=== PATIENT | male | born 1980 | race Caucasian/White ===

== ENCOUNTER 2017-08-27 14:40 | Emergency (ER) | payer OTHER, SELFPAY ==
[2017-08-27 14:46] VITALS: BP 120/74; PULSE 80; RESP 16; TEMP 36.7; O2SAT 98; BMI 32.1
[2017-08-27 14:48] VITALS: BP 120/74; PULSE 80; RESP 16; TEMP 36.7; O2SAT 98; BMI 32.1
--- NOTE | 2017-08-27 14:57 | HMH.EDUTC ---
[facility] [place] Disposition Clinical Impression: Contact dermatitis due to poison vine Disposition: Home, Self-Care Condition on Discharge: Good Instructions: DI for Poison Bhumi Allergy, Triamcinolone Additional Instructions: * Poison Bhumi: Discussed how poison vine spreads. Pt seemed aware. Be sure to wash everything you think you might have been wearing when you were exposed. * Kenalog Injection: you received an injection of kenalog today. This is a long acting steroid as we discussed. This should cover the life span of this exposure to poison bhumi but be sure to follow up for new or worsening symptoms. If you have surgery any time in the next 30 days, try to remember to tell them you received an injection of kenalog 40mg today, 08/27/17. Remember as we discussed, steroids can cause you to feel flushed, jittery, difficult to sleep, energetic, higher blood pressure. Steroids should not effect your ability to drive so if you feel that is impaired, do NOT drive and follow up immediately. * staying cool, cool showers and/or compresses calms the itching. Oatmeal baths may help as well. * If you need additional medication to help with the itching, zyrtec in the morning and if necessary, benadryl at bedtime. Just remember benadryl causes drowsiness and you would NOT want to take this if you are going to be out driving. * topical cream is ok to continue to use but avoid use around eye or genitals. Follow up: We have provided you with a list of providers accepting patients. I would encourage you find a new primary care provider and make an appt NEETA as it can take weeks to get a new patient appointment. In the meantime, follow up in the clinic or ER for new, worsening or persistent symptoms. Time of Disposition: 15:11 (RN aware, must wait shot time to ensure to reaction) Medical Decision Making - Kevin Inquiry Pt receiving controlled substance: No Vital Signs: 08/27/17 14:46 08/27/17 14:48 Temperature 98.1 F 98.1 F Temperature Source Oral Temporal Artery Scan Pulse Rate [Right Radial] 80 80 Respiratory Rate 16 16 Blood Pressure [Right Arm] 120/74 120/74 Blood Pressure Mean [Right Arm] 89 89 Blood Pressure Source [Right Arm] Automatic Cuff Automatic Cuff Blood Pressure Position [Right Arm] Sitting Sitting 02 Sat by Pulse Oximetry 98 98 Oxygen Delivery Method Room Air Room Air Orders (Tests/Meds): ED MEDICATIONS Discontinued Medications Generic Name Dose Route Start Last Admin Trade Name Gagan PRN Reason Stop Dose Admin Triamcinolone Acetonide 40 mg 08/27/17 15:07 08/27/17 15:11 Kenalog 40mg/Ml Vial IM 08/27/17 15:08 40 mg ONCE ONE Administration [facility] [place] HPI - General Stated complaint: rash around eyes Time Seen by Provider: 08/27/17 14:57 Mode of Arrival: Family Vehicle Source of Information: Patient Limitations: No Limitations Description of Symptoms (Recalled from Triage Doc. by RN): C/O RASH AROUND EYES HEENT Symptoms (Recalled from RN notes): No Resp Symptoms (Recalled from RN notes): No Skin Symptoms (Recalled from RN notes): Yes MS Symptoms (Recalled from RN notes): No Functional Status (Recalled from RN notes): N/A - History of Present Illness Provider Complaint: Here w/ primarily due to itchy red rash around both eyes but reports it is also on Kristofer FAs and penis. Hx of significant reactions to poison bhumi in the past. Was trimming and pulling pushes/weeds over this most recent weekend, 2-3 days ago, and feels confident that is what this is. No other new contacts, foods, medications. Woke up this morning with eyes swollen. Otc antiitch helps on arms but afraid to put it elsewhere. made him an essential oils antitich cream but that hasn't helped. More red and itchy when hot today. Reports a little swelling around rash on penis but denies any difficulty or pain with urination. No testicular pain. No other contacts w/ rash. I just walk by poison bhumi though and I get it somehow
--- NOTE | 2017-08-27 15:07 | ED_ITS ---
[facility] Disposition Clinical Impression: Contact dermatitis due to poison vine Disposition: Home, Self-Care Condition on Discharge: Good Instructions: DI for Poison Bhumi Allergy, Triamcinolone Additional Instructions: * Poison Bhumi: Discussed how poison vine spreads. Pt seemed aware. Be sure to wash everything you think you might have been wearing when you were exposed. * Kenalog Injection: you received an injection of kenalog today. This is a long acting steroid as we discussed. This should cover the life span of this exposure to poison bhumi but be sure to follow up for new or worsening symptoms. If you have surgery any time in the next 30 days, try to remember to tell them you received an injection of kenalog 40mg today, 08/27/17. Remember as we discussed, steroids can cause you to feel flushed, jittery, difficult to sleep, energetic, higher blood pressure. Steroids should not effect your ability to drive so if you feel that is impaired, do NOT drive and follow up immediately. * staying cool, cool showers and/or compresses calms the itching. Oatmeal baths may help as well. * If you need additional medication to help with the itching, zyrtec in the morning and if necessary, benadryl at bedtime. Just remember benadryl causes drowsiness and you would NOT want to take this if you are going to be out driving. * topical cream is ok to continue to use but avoid use around eye or genitals. Follow up: We have provided you with a list of providers accepting patients. I would encourage you find a new primary care provider and make an appt NEETA as it can take weeks to get a new patient appointment. In the meantime, follow up in the clinic or ER for new, worsening or persistent symptoms. Time of Disposition: 15:11 (RN aware, must wait shot time to ensure to reaction) Medical Decision Making - Kevin Inquiry Pt receiving controlled substance: No Vital Signs: 08/27/17 14:46 08/27/17 14:48 Temperature 98.1 F 98.1 F Temperature Source Oral Temporal Artery Scan Pulse Rate [Right Radial] 80 80 Respiratory Rate 16 16 Blood Pressure [Right Arm] 120/74 120/74 Blood Pressure Mean [Right Arm] 89 89 Blood Pressure Source [Right Arm] Automatic Cuff Automatic Cuff Blood Pressure Position [Right Arm] Sitting Sitting 02 Sat by Pulse Oximetry 98 98 Oxygen Delivery Method Room Air Room Air Orders (Tests/Meds): ED MEDICATIONS Discontinued Medications Generic Name Dose Route Start Last Admin Trade Name Gagan PRN Reason Stop Dose Admin Triamcinolone Acetonide 40 mg 08/27/17 15:07 08/27/17 15:11 Kenalog 40mg/Ml Vial IM 08/27/17 15:08 40 mg ONCE ONE Administration [facility] HPI - General Stated complaint: rash around eyes Time Seen by Provider: 08/27/17 14:57 Mode of Arrival: Family Vehicle Source of Information: Patient Limitations: No Limitations Description of Symptoms (Recalled from Triage Doc. by RN): C/O RASH AROUND EYES HEENT Symptoms (Recalled from RN notes): No Resp Symptoms (Recalled from RN notes): No Skin Symptoms (Recalled from RN notes): Yes MS Symptoms (Recalled from RN notes): No Functional Status (Recalled from RN notes): N/A - History of Present Illness Provider Complaint: Here w/ primarily due to itchy red rash around both eyes but reports it is also on Kristofer FAs and penis. Hx of significant reactions to poison bhumi in the past. Was trimming and pulling pushes/weeds o
[2017-08-27 15:21] VITALS: BP 120/74; PULSE 80; RESP 16; TEMP 36.7; O2SAT 98
== END 2017-08-27 15:33 | disposition home or self-care (01) ==
LOC: UTC 15:31
PROVIDERS: Emergency Provider Nurse Practitioner Family
DX: L25.5 Unspecified contact dermatitis due to plants, except food (principal); Z88.0 Allergy status to penicillin
CPT/HCPCS: 96372; 99201

== ENCOUNTER → 2019-10-20 09:40 | Outpatient (CLI) | payer OTHER, SELFPAY ==
--- NOTE | 2019-10-20 | CT_ITS ---
PROCEDURE: CT ABDOMEN PELVIS WO CON CLINICAL INDICATION: ABDOMINAL PAIN, suspected umbilical hernia and possible left inguinal hernia COMPARISON: No exams were available for comparison TECHNIQUE: IV Contrast: None given Oral Contrast 20ml Gastroview Axial images obtained with sagittal and coronal reformats. All CT scans at the facility use one or more dose reduction, viz: automated exposure control, ma/kV adjustment per patient size (including targeted exams where dose is matched to indication, i.e. head), or iterative reconstruction technique. FINDINGS: Lower thorax: The lower lung kim are clear and there is no pleural fluid. Cardiac size is normal. ABDOMEN: Liver: No masses or biliary dilatation. Gallbladder: Nondistended. No radio opaque stones. Pancreas: No masses or peripancreatic fluid collections. Spleen: unremarkable Adrenals: unremarkable Kidneys/ureters: The kidneys are normal size and there are no calculi and there is no obstructive uropathy. ABDOMEN & PELVIS: Stomach bowel: The stomach and duodenal sweep are normal. Oral contrast opacifies the proximal and mid small bowel which appears normal. The distal small bowel is normal as well. There is a moderately large amount stool in the cecum ascending and transverse colon. There are mild pre diverticular changes of the sigmoid colon with accentuation of the haustra folds. There are few diverticula at the descending colon sigmoid colon junction but there is no diverticulitis. Peritoneum: There is a small umbilical hernia containing fat only measuring 1 point 9 cm at the mouth. There is a left-sided inguinal hernia measuring 2.8 x 2.8 cm on the axial image by 7.0 cm superior inferior dimension on the coronal sequence. Lymph nodes: No enlarged lymph nodes apparent. Vasculature: No evidence of abdominal aortic aneurysm. No retroperitoneal hemorrhage evident. Bones: There is focal degenerate changes mid lower thoracic spine. PELVIS: Reproductive: unremarkable Bladder: Nondistended. No obvious stones or masses. The prostate is normal in size. Appendix: Not definitely identified but there are no findings to suggest appendicitis. IMPRESSION: Small umbilical hernia and small a moderate size left inguinal hernia, minimal diverticulosis descending sigmoid colon junction without diverticulitis Dictated by: Dr. Shane Stewart MD 10/20/2019 11:00 Dr. Shane Stewart MD in [place] 10/20/2019 11:00
== END ==
PROVIDERS: PCP Family Medicine; Visit Provider Physician Assistant
DX: R10.32 Left lower quadrant pain (principal)
CPT/HCPCS: 74176

== ENCOUNTER → 2019-11-19 09:58 | Outpatient (CLI) | payer OTHER, SELFPAY ==
[2019-11-19 10:04] LABS: Microscopic, Urine URINE MICROSCOPIC (MICROSCOPIC)
[2019-11-19 10:29] LABS: Appearance,Urine CLEAR (Clear); Bilirubin,Urine Negative (Negative); Blood, Urine Negative (Negative); Color,Urine YELLOW (Yellow); Glucose,Urine (UA) Negative (Negative); Ketones,Urine Negative (Negative); Leukocyte Esterase,Urine Negative (Negative); Nitrate,Urine Negative (Negative); PH,Urine 5.5 (5.0-8.5); Protein,Urine Negative (Negative); Specific Gravity, Urine >= 1.030 (1.005-1.030); Urobilinogen,Urine 0.2 EU/dl (0.2)
[2019-11-19 10:42] LABS: Squamous Epithelial Cell,Urine Occasional #/hpf (0-5); WBC,Urine Occasional #/hpf (0-3)
[2019-11-19 10:43] LABS: Basophils # 0.1 K/mm3 (0-0.2); Basophils % 0.6 % (0.1-2.0); Eosinophils # 0.3 K/mm3 (0.0-0.4); Eosinophils % 4.5 % (0.1-12.0); Hemoglobin 16.4 g/dL (14.1-18.0); Lymphocytes # 2.2 K/mm3 (0.7-4.5); Lymphocytes % 29.2 % (10-50); Mean Corpuscular HGB Conc 34.8 g/dL (31.8-35.4); Mean Corpuscular Hemoglobin 30.9 pg (27.0-31.2); Mean Corpuscular Volume 88.9 fl (80-94); Mean Platelet Volume 7.6 fl (7.4-10.4); Monocytes # 0.4 K/mm3 (0.1-1.0); Monocytes % 5.8 % (1.7-9.3); Neutrophils # 4.5 K/mm3 (1.8-7.8); Neutrophils % 59.9 % (37.0-80.0); Platelet Count 334 K/mm3 (142-424); Red Blood Count 5.29 M/mm3 (4.60-6.20); Red Cell Distribution Width 13.3 % (11.5-17.5); White Blood Count 7.5 K/mm3 (4.8-10.8)
[2019-11-19 11:27] LABS: Anion Gap 17.5 mEq/L (5-15); Blood Urea Nitrogen 26 mg/dl (9-20); Calcium 10.1 mg/dl (8.4-10.2); Carbon Dioxide 30 mmol/L (22.0-30.0); Chloride 100 mmol/L (98-107); Estimated Glomerular Filt Rate 74 ml/min (>60); GFR (African American) 90 ML/MIN (>60); Glucose 101 mg/dl (74-100); Potassium 4.5 mmoL/L (3.5-5.1); Sodium 143 mmol/L (136-145)
[2019-11-19 12:56] LABS: Coronavirus 19 IgG Antibody Negative (Negative); Coronavirus 19 IgM Antibody Negative (Negative)
== END ==
PROVIDERS: Visit Provider Surgery
DX: Z01.818 Encounter for other preprocedural examination (principal); K46.9 Unspecified abdominal hernia without obstruction or gangrene
CPT/HCPCS: 36415; 80048; 81001; 85025; 86328

== ENCOUNTER 2019-11-20 06:09 | Day surgery (SDC) | payer OTHER, SELFPAY ==
[2019-11-18 13:40] VITALS: BMI 32.8
[2019-11-20] VITALS (18 sets, daily range): BP systolic 112–144; BP diastolic 43–95; PULSE 72–94; RESP 12–18; TEMP 36.6–43; O2SAT 90–99
--- NOTE | 2019-11-20 07:25 | HMH.ANESCL ---
[facility] Anesthesia Checklist - Patient Identification Patient Identification: Arm Band, Verbal (Name & ) - Structural Data Admitted From: Home Planned Operative Procedure/s: Open umbilical and left inguinal hernia repair Consent for Planned Operative Procedure(s) Verified: Yes Verified Documents: Surgical Consent, History and Physical - NPO Status Verified Time NPO: 21:00 - Chart Verification Results Verified: CBC, BMP, UA - Additional verifications Anesthesia Reactions: No Hx Blood Transfusions: No Blood Transfusion Reaction: No - Airway Assessment C-Spine Mobility Assessed: Yes TMJ Mobility Assessed: Yes Dentition: Good Dentition - Neurological Assessment Level of Consciousness: Awake, Alert, Appropriate, Follows Commands Hx Seizures: No Numbness or tingling in extremities: No - Anesthesia Plan Anesthesia Risk discussed: Yes Anesthesia Plan: Verified ASA Class: II Anesthesia Type: General [facility] History I have reviewed the patient's past medical history: Yes Medical History: Denies:: Cancer, Diabetes Mellitus Type 1, Diabetes Mellitus Type 2, Hypertension, Internal Pacemaker, Lung Disease, MRSA, Seizures *Have you ever received a pneumonia vaccine?: No *Have you received a flu vaccine this season?: No Other Medical History: Denies: Blood Transfusion Reaction Comment:: Obesity Anesthesia experience/problems:: No prior complications Other Surgeries: Yes: Other. No: Pacemaker Amputation: No Fractures: No - *Social History Last grade of school completed: High school graduate Smoking Status: Never smoker Alcohol Intake: never Substance Use Type: denies use *Occupational Status:: employed Housing: house Household Members: spouse, family *Travel in the last 8 weeks: None Family Hx:: No significant family history
[2019-11-20 09:18] LABS: Microscopic,Cath URINE MICROSCOPIC (MICROSCOPIC)
--- NOTE | 2019-11-20 09:50 | HMH.ANESI ---
[facility] Anesthesia Record Part I Intake, IV Amount: 2,000 Estimated blood loss (mL): 10 Urine output (mL): 0 Blood Pressure: 144/95 SaO2: 95 Pulse Rate: 85 Respiratory Rate: 12 Temperature: 98.2 F Patient is:: Awake, Stable Stable to PACU at:: 09:50
--- NOTE | 2019-11-20 09:53 | P.OP_ITS ---
Date of procedure: 11/20/19 Pre-op Diagnosis:: Umbilical hernia Left inguinal hernia Post-op Diagnosis:: Same Procedure performed:: Open repair of umbilical hernia with 6.4 cm VentraLex mesh Open repair of direct left inguinal hernia Surgeon:: Jono Rae MD MEDICAL SERVICE REPRESENTATIVE:: Fili Kumar Anesthesia: GETA Estimated blood loss (mL): 15 Clinical Note:: The risks and benefits of laparoscopic repair and the risks and benefits of open repair were discussed with the patient prior to surgery. The patient requested open approach. Operative findings:: 2.5 cm umbilical defect Complex direct left inguinal hernia with dense inflammatory response Operative note:: After informed consent was obtained the patient was taken to the operating room and placed in the supine position. General anesthesia was induced and his abdomen and groin/scrotum were prepped and draped in a sterile fashion. After infiltration local anesthetic an infraumbilical incision was made. The deep subcutaneous tissue was dissected with a combination of electrocautery, Metzenbaum scissors, and blunt dissection. The umbilical stalk was transected/elevated. A 2.5 cm defect was encountered. Incarcerated preperitoneal fat noted. A 6.4 cm VentraLex mesh was secured in position with interrupted 0 Ethibond. Primary closure overlying the mesh was 0 Ethibond was then completed. The umbilical stalk was reapproximated with non-dyed 2-0 Vicryl. Skin was then closed with interrupted 4-0 Monocryl. Dressings were applied. After infiltration local anesthetic/nerve block and oblique left groin incision was made. The deep subcutaneous tissue was dissected with electrocautery through Nuha's fascia to the level of the external aponeurosis. The external aponeurosis was sharply opened with Metzenbaum scissors to the level of the external ring. The contents of the canal were carefully elevated. Significant degree of chronic scarring was noted. A complex large direct defect was encountered. An extra-large PerFix plug was secured with interrupted Ethibond. The overlay PerFix was then secured to the shelving edge inferiorly and fascial margin superiorly with interrupted 0 Ethibond. The external aponeurosis was reapproximated with interrupted non-dyed 2-0 Vicryl. Nuha's fascia was reapproximated in similar manner. Skin was then closed with running 4-0 Monocryl in a subcuticular fashion. Sterile dressings were applied and patient was transferred to recovery in stable condition after extubation. Condition: stable Disposition: PACU Specimens:: None Complications:: No immediate
[2019-11-20 10:21] LABS: Appearance,Urine/Cath CLEAR (Clear); Bilirubin,Cath Negative (Negative); Blood, Urine/Cath Negative (Negative); Color,Urine/Cath YELLOW (Yellow); Glucose,Urine/Cath (UA) Negative (Negative); Ketones,Urine/Cath Negative (Negative); Leukocyte Esterase,Cath Negative (Negative); Nitrate,Cath Negative (Negative); PH,Urine/Cath 5.5 (5.0-8.5); Protein,Urine/Cath Negative (Negative); Specific Gravity, Urine/Cath >= 1.030 (1.005-1.030); Urobilinogen,Cath 0.2 EU/dl (0.2)
[2019-11-20 10:28] LABS: RBC,Urine/Cath Occasional # /hpf (0-3); Squamous Epithelial Ur./Cath Occasional #/hpf (0-5)
--- NOTE | 2019-11-20 13:59 | PC.NURSE ---
IPC pump applied to bilateral lower legs .Denies leg pain Watching for redness and pain
--- NOTE | 2019-11-21 13:26 | HMH.ANESII ---
[facility] Anesthesia Record Part II Discharge Time: 10:25 Destination: Surgical Day Care (OP Surgery) PACU nurse assessment reviewed?: Yes Patient Condition:: Fair Anesthesia Complications:: None Swallowing reflex intact?: Yes Cyanosis?: No Blood Pressure: 120/73 Pulse Rate: 79 Temperature: 98.2 F Mental Status: Alert & Oriented Pain level:: 9 Nausea and/or vomitting:: None Intake, IV Amount: 0
[2019-11-21 13:29] VITALS: BP 120/73; PULSE 79; TEMP 36.8
== END 2019-11-20 13:05 | disposition home or self-care (01) ==
LOC: OR 06:11
PROVIDERS: PCP Family Medicine; Visit Provider Surgery
PROC: (CPT 49585; principal; 2019-11-20 07:30)
DX: K42.9 Umbilical hernia without obstruction or gangrene (principal); Z88.0 Allergy status to penicillin
CPT/HCPCS: 49585; 81001; 96374; C1781; J2405

== ENCOUNTER 2019-11-23 11:00 | Outpatient (CLI) | payer OTHER, SELFPAY ==
[2019-11-23 11:03] VITALS: BP 142/74; PULSE 81; RESP 18; TEMP 36.9; O2SAT 98
== END 2019-11-23 11:18 | disposition home health service (06) ==
LOC: INF 11:00
PROVIDERS: Visit Provider Surgery
DX: K40.90 Unilateral inguinal hernia, without obstruction or gangrene, not specified as recurrent (principal); K42.9 Umbilical hernia without obstruction or gangrene
CPT/HCPCS: 96372

== ENCOUNTER → 2020-04-27 09:32 | Outpatient (CLI) | payer OTHER, SELFPAY ==
--- NOTE | 2020-04-27 09:32 | CT_ITS ---
PROCEDURE: CT ABDOMEN PELVIS W CON CLINICAL INDICATION: Lower abdominal pain Eval prior hernia surgery Pain in umbilical area and left groin Surgery November 2019 COMPARISON: CT CT ABDOMEN PELVIS WO CON from 10/20/2019 TECHNIQUE: IV Contrast: 75ML Isovue 370 Oral Contrast None Axial images obtained with sagittal and coronal reformats. All CT scans at the facility use one or more dose reduction, viz: automated exposure control, ma/kV adjustment per patient size (including targeted exams where dose is matched to indication, i.e. head), or iterative reconstruction technique. FINDINGS: There are mild atelectatic or fibrotic changes in the lingula and right lung base. The right hemidiaphragm is elevated. The liver, adrenal glands, pancreas, and kidneys show no acute finding. There is mild splenomegaly at 14 cm. No intestinal obstruction or free air. Unremarkable appearing appendix. There is colonic diverticulosis without diverticulitis. There is some increased soft tissue density in the left inguinal region consistent with postsurgical changes from prior hernia repair. A small seroma is also consideration. This area measures approximately 3 by 1.6 cm. No recurrence or residual hernia is evident. Previously noted umbilical hernia is no longer apparent. With postsurgical changes at the umbilical region There is colonic diverticulosis but no evidence of diverticulitis. Metallic density noted in the right testicular region from vasectomy. Mildly prominent seminal vesicle on the right. There is a small right inguinal hernia. No acute bony findings. IMPRESSION: 1. Soft tissue density in the left inguinal region consistent with postsurgical changes versus small seroma. No evidence of recurrence or residual hernia 2. Colonic diverticulosis. No evidence of diverticulitis Dictated by: Vin Bradley MD 04/28/2020 11:01 Vin Bradley MD in [place] 04/28/2020 11:01
== END ==
PROVIDERS: PCP Surgery; Visit Provider Surgery
DX: K46.9 Unspecified abdominal hernia without obstruction or gangrene (principal); R10.30 Lower abdominal pain, unspecified
CPT/HCPCS: 74177; Q9967

== ENCOUNTER 2020-08-29 18:34 | Emergency (ER) | payer BC, SELFPAY ==
[2020-08-29 20:39] VITALS: BP 157/111; PULSE 81; RESP 20; TEMP 37.1; O2SAT 98; BMI 34.2
--- NOTE | 2020-08-29 20:42 | HMH.EDUTC ---
[facility] [place] Clinical Impression: Sinusitis Qualifiers: Sinusitis location: unspecified location Chronicity: acute Recurrence: non-recurrent Qualified Code(s): J01.90 - Acute sinusitis, unspecified Otitis media Qualifiers: Otitis media type: suppurative Chronicity: acute Laterality: right Recurrence: non-recurrent Spontaneous tympanic membrane rupture: without spontaneous rupture Qualified Code(s): H66.001 - Acute suppurative otitis media without spontaneous rupture of ear drum, right ear Disposition: Home, Self-Care Condition on Discharge: Good Instructions: Middle Ear Infection, DI for Sinusitis Additional Instructions: Drink plenty of fluids. Take tylenol or ibuprofen for pain or fever. Take the medications as directed. Follow up with your regular doctor. GO TO THE ER FOR ANY WORSENING SYMPTOMS Prescriptions: Benzonatate [Tessalon Perle 100mg Cap] 100 mg PO TIDP PRN #30 cap PRN Reason: Cough Transmission Status: Received by [id number] Azithromycin [Z-Avi 250mg Tab*] 250 mg PO UD DOSE PK #6 tab Transmission Status: Received by [facility] Referrals: Otto Robles MD [Primary Care Provider] - Forms: Work/School Release Time of Disposition: 20:49 Medical Decision Making - Medical Records Medical records reviewed: No: I reviewed the patient's medical records. - Kevin Inquiry Pt receiving controlled substance: No Vital Signs: 08/29/20 20:39 08/29/20 20:56 Temperature 98.7 F 98.6 F Temperature Source Oral Pulse Rate 81 Pulse Rate [Right] 81 Respiratory Rate 20 18 Blood Pressure 157/111 H Blood Pressure [Right Arm] 157/111 H Blood Pressure Mean [Right Arm] 126 Blood Pressure Source [Right Arm] Automatic Cuff Blood Pressure Position [Right Arm] Sitting 02 Sat by Pulse Oximetry 98 [facility] [place] HPI - General Stated complaint: congestion headache Time Seen by Provider: 08/29/20 20:42 - History of Present Illness Provider Complaint: He c/o sinus congestion and bilateral ear pain for the past 2 days. - Related Data Previous Rx's Medication Instructions Recorded Azithromycin [Z-Avi 250mg Tab*] 250 mg PO UD DOSE PK #6 tab 08/29/20 Benzonatate [Tessalon Perle 100mg 100 mg PO TIDP PRN #30 cap 08/29/20 Cap] Allergies Allergy/AdvReac Type Severity Reaction Status Date / Time Penicillins [PENICILLINS] Allergy Unknown Verified 05/04/20 12:58 [facility] History - Hepatitis A Screen Attestation statement:: This patient has been screened for Hepatitis A risk factors. I have reviewed the patient's past medical history: Yes Medical History: Denies:: Cancer, Diabetes Mellitus Type 1, Diabetes Mellitus Type 2, Hypertension, Internal Pacemaker, Lung Disease, MRSA, Seizures Other Medical History: Denies: Blood Transfusion Reaction Comment: Obesity Other Surgeries: Yes: Hernia Repair, Other. No: Pacemaker Amputation: No Fractures: No - Social History Smoking Status: Never smoker Alcohol Intake: never Substance Use Type: denies use Occupational Status: employed Housing: house Household Members: spouse, family Family Hx:: No significant family history ROS Obtained: Yes All systems reviewed & no additional complaints - Constitutional Constitutional: Reports chills, Reports fever(s), Reports poor appetite, Reports malaise - Eyes Eyes: Denies eye discharge - ENT Ears, Nose, Mouth, and Throat: Reports as per HPI - Cardiovascular Cardiovascular: Denies chest pain - Respiratory Respiratory: Reports chest congestion, Reports cough, Denies dyspnea, Denies stridor, Denies wheezing Physical Exam - General General appearance: alert, in no apparent distress - Head Head exam: atraumatic, normocephalic, normal inspection - Eye Eye exam: Present: normal appearance, PERRL, EOMI - ENT ENT exam: Present: mucous membranes moist, normal external ear exam - Expanded ENT Exam TM/Canal exam: Bilateral TM: erythema, bulging, effusion Nose
[2020-08-29 20:56] VITALS: BP 157/111; PULSE 81; RESP 18; TEMP 37
== END 2020-08-29 20:58 | disposition home or self-care (01) ==
PROVIDERS: Emergency Provider Nurse Practitioner Family; PCP Family Medicine
DX: J01.90 Acute sinusitis, unspecified (principal); H66.001 Acute suppurative otitis media without spontaneous rupture of ear drum, right ear
CPT/HCPCS: 99202; G0463; U0003

== ENCOUNTER → 2021-03-24 12:58 | Outpatient (CLI) | payer OTHER, SELFPAY | PROVIDERS: Visit Provider Nurse Practitioner | DX: Z20.822 Contact with and (suspected) exposure to COVID-19 (principal) | CPT/HCPCS: C9803; U0003; U0005 ==

== ENCOUNTER 2021-06-02 15:46 | Emergency (ER) | payer OTHER, SELFPAY ==
[2021-06-02 16:05] VITALS: BP 133/87; PULSE 81; RESP 19; TEMP 36.8; O2SAT 97; BMI 36.2
--- NOTE | 2021-06-02 16:29 | HMH.EDUTC ---
[facility] [place] Clinical Impression: Cough Disposition: Home, Self-Care Condition on Discharge: Good Instructions: Cough, Benzonatate, Fluticasone Nasal Doyle Additional Instructions: *Monitor Temp, Over the counter Motrin or Tylenol as directed/as needed Tylenol every 4 hours and Motrin every 6 hours (as long as your family doctor has told you that you can take it) for fever or pain. and straight to ER if unable to lower temp less than 101.0 after medication given *Warm salt water gargles may help to soothe the throat *Throat Lozenges *Sleep elevated *Humidifier/Vaporizer *Flonase 2 sprays in each nostril daily but be aware that it may take 2-3 days before you notice improvement Follow up with your Family Doctor for further testing and evaluation Follow up IMMEDIATELY for new or worsening symptoms or no Noticeable improvement over the next 48-72 hours. 911 for difficulty breathing or swallowing Prescriptions: Benzonatate [Benzonatate 100mg cap] 100 mg PO Q8HP PRN #15 cap PRN Reason: Cough Transmission Status: Received by [id number] Fluticasone Propionate [Flonase 50mcg nasal spray 16gm] 1 spr NS DAILY #1 each Transmission Status: Received by [id number] Referrals: Otto Robles MD [Primary Care Provider] - As needed Time of Disposition: 16:39 Medical Decision Making - Kevin Inquiry Pt receiving controlled substance: No Kevin was queried for this patient: No Vital Signs: 06/02/21 16:05 06/02/21 16:44 Temperature 98.3 F 98.3 F Temperature Source Oral Pulse Rate 81 Pulse Rate [Right Brachial] 81 Respiratory Rate 19 19 Blood Pressure 133/87 Blood Pressure [Right Arm] 133/87 Blood Pressure Mean [Right Arm] 102 Blood Pressure Source [Right Arm] Automatic Cuff Blood Pressure Position [Right Arm] Sitting 02 Sat by Pulse Oximetry 97 Oxygen Delivery Method Room Air [facility] [place] HPI - General Stated complaint: cough, Time Seen by Provider: 06/02/21 16:29 Mode of Arrival: Ambulatory Source of Information: Patient Limitations: No Limitations Description of Symptoms (Recalled from Triage Doc. by RN): PATIENT C/O COUGH X 2 WEEKS HEENT Symptoms (Recalled from RN notes): No Resp Symptoms (Recalled from RN notes): Yes Skin Symptoms (Recalled from RN notes): No MS Symptoms (Recalled from RN notes): No Functional Status (Recalled from RN notes): WNL - History of Present Illness Provider Complaint: Patient states that he has had a naggy cough for about 2 weeks States that he feels like there is a tickle in his throat then he starts coughing Denies sinus congestion and denies feeling ill - Related Data Previous Rx's Medication Instructions Recorded Azithromycin [Z-Avi 250mg Tab*] 250 mg PO UD DOSE PK #6 tab 08/29/20 Benzonatate [Tessalon Perle 100mg 100 mg PO TIDP PRN #30 cap 08/29/20 Cap] Benzonatate [Benzonatate 100mg 100 mg PO Q8HP PRN #15 cap 06/02/21 cap] Fluticasone Propionate [Flonase 1 spr NS DAILY #1 each 06/02/21 50mcg nasal spray 16gm] Allergies Allergy/AdvReac Type Severity Reaction Status Date / Time Penicillins [PENICILLINS] Allergy Unknown Verified 05/04/20 12:58 - Worker's Comp Is this a Worker's Comp case?: No [facility] History - Hepatitis A Screen Drug use history?: No High risk sexual behaviors?: No History of sexually transmitted infection?: No Currently employed?: No Childcare worker?: No Do you have indoor plumbing?: Yes Do you have electricity?: Yes Attestation statement:: This patient has been screened for Hepatitis A risk factors. I have reviewed the patient's past medical history: Yes Medical History: Denies:: Cancer, Diabetes Mellitus Type 1, Diabetes Mellitus Type 2, Hypertension, Internal Pacemaker, Lung Disease, MRSA, Seizures Other Medical History: Denies: Blood Transfusion Reaction Comment: Obesity Other Surgeries: Yes: Hernia Repair, Other. No: Pacemaker Amputation: No Fractures: No - Social History Smoki
[2021-06-02 16:44] VITALS: BP 133/87; PULSE 81; RESP 19; TEMP 36.8; O2SAT 97
== END 2021-06-02 16:55 | disposition home or self-care (01) ==
PROVIDERS: Emergency Provider Nurse Practitioner; PCP Family Medicine
DX: R05.1 Acute cough (principal)
CPT/HCPCS: 99212; G0463